=== PATIENT | male | born 1950 | race Caucasian/White ===

== ENCOUNTER 2018-09-16 12:30 | Inpatient (IN) | payer MEDICARE, MEDICAID ==
[~2018-09-16] VITALS: Ht 188 cm; Wt 89.8 kg
[~2018-09-16 12:30] MED LIST: ALLO300T PO; ASPI325T17 PO; ASPI81TA45 PO; ATOR40TA PO; ERGO500017 PO; FEBU40TA PO; LEVO50TA5 PO; LISI-167 PO; LISI40TA PO; METF500T17 PO; METO25TA35 PO; ONDA4TAB10 PO; PRAS10TA4 PO; PRED10TA PO
[2018-10-28 12:19] VITALS: BP 127/78
[2018-10-28] MEDS ORDERED: SODIUM CHLORIDE 0.9% 1,000 ML IV SCH (12:39)
[2018-10-28 12:41] LABS: MICROSCOPIC AUTO
[2018-10-28 12:43] LABS: CULTURE INDICATED? NO
[2018-10-28] MEDS ORDERED: MIDAZOLAM 1 MG/ML, 2ML ONE (12:46)
[2018-10-28] MEDS ORDERED: FENTANYL PF 250 MCG/5ML ONE ×2 (12:46→15:10)
[2018-10-28] MEDS ORDERED: BUPIVACAINE/EPI 0.5% 1:200K ONE (13:00)
[2018-10-28] MEDS ORDERED: THROMBIN 5,000 UNIT VIAL TP ONE (13:01)
[2018-10-28 13:16] LABS: BASOPHILS # (AUTO) 0.02 x10^3/uL (0-0.1); BASOPHILS % (AUTO) 0 % (0-1); EOSINOPHILS # (AUTO) 0.15 x10^3/uL (0-0.4); EOSINOPHILS % (AUTO) 1 % (1-7); LYMPHOCYTES # (AUTO) 1.38 x10^3/uL (1-3.4); LYMPHOCYTES % (AUTO) 12 % (22-44); MD NO; MEAN CORPUSCULAR HEMOGLOBIN 29.6 pg (27.5-34.5); MEAN CORPUSCULAR HGB CONC 32.8 g/dL (33.2-36.2); MEAN CORPUSCULAR VOLUME 90.3 fL (81-97); MEAN PLATELET VOLUME 8.1 fL (7.4-10.4); MONOCYTES # (AUTO) 0.63 x10^3/uL (0.2-0.8); MONOCYTES % (AUTO) 6 % (2-9); NEUTROPHILS # (AUTO) 8.97 x10^3/uL (1.8-6.8); NEUTROPHILS % (AUTO) 80 % (42-75); PLATELET COUNT 266 x10^3/uL (130-400); RED BLOOD COUNT 3.92 x10^6/uL (4.38-5.82); RED CELL DISTRIBUTION WIDTH 17.4 % (9.4-14.8)
[2018-10-28] MEDS ORDERED: CLOP75TA52 PO (13:17)
[2018-10-28] MEDS ORDERED: AMLO10TA8 PO (13:17)
[2018-10-28] MEDS ORDERED: ASPI-496 PO (13:17)
[2018-10-28] MEDS ORDERED: LIDOCAINE-MPF 2% ,5ML ONE (13:26)
[2018-10-28] MEDS ORDERED: EPHEDRINE 50 MG/ML, 1ML ONE (13:26)
[2018-10-28] MEDS ORDERED: PHENYLEPHRINE 10 MG/ML ONE (13:26)
[2018-10-28 13:27] LABS: ALANINE AMINOTRANSFERASE 13 U/L (12-78); ALBUMIN 3.6 g/dL (3.4-5.0); ANION GAP 11 mmol/L (5-15); CALCIUM 9.4 mg/dL (8.5-10.1); CHLORIDE 101 mmol/L (98-107); CREATININE 5.88 mg/dL (0.7-1.3)
[2018-10-28 13:30] LABS: ALKALINE PHOSPHATASE 87 U/L (45-117); TOTAL PROTEIN 7.9 g/dL (6.4-8.2)
[2018-10-28] MEDS ORDERED: CEFTRIAXONE 1,000 MG ONE (13:34)
[2018-10-28] MEDS ORDERED: ONDANSETRON ODT 8 MG PO PRN (15:00)
[2018-10-28] MEDS ORDERED: FENTANYL PF 100 MCG/2ML IV PRN (15:00)
[2018-10-28] MEDS ORDERED: PROMETHAZINE 25 MG/ML, 1ML IV PRN (15:00)
[2018-10-28] MEDS ORDERED: LABETALOL 5MG/ML, 20ML IV PRN (15:00)
[2018-10-28] MEDS ORDERED: PROMETHAZINE 25 MG SUPP PR PRN (15:00)
[2018-10-28] MEDS ORDERED: hydrALAzine 20 MG/ML, 1ML IV PRN (15:00)
[2018-10-28] MEDS ORDERED: ONDANSETRON 2MG/ML, 2ML IV PRN ×2 (15:00→18:30)
[2018-10-28] MEDS ORDERED: OXYcodone 5 MG/5 ML ORAL.SOL UDC PO PRN (15:00)
[2018-10-28] MEDS ORDERED: HYDROmorphone 2 MG/ML, 1ML IVPush PRN (15:00)
[2018-10-28] MEDS ORDERED: ACETAMINOPHEN 325 MG TABLET PO PRN (15:00)
[2018-10-28] MEDS ORDERED: DEXAMETHASONE 4 MG/ML, 1ML ONE (15:10)
[2018-10-28] MEDS ORDERED: SUCCINYLCHOLINE 20 MG/ML, 10ML ONE (15:10)
[2018-10-28] MEDS ORDERED: ONDANSETRON 2MG/ML, 2ML ONE (15:10)
[2018-10-28] MEDS ORDERED: PROPOFOL 10 MG/ML, 20ML ONE (15:10)
[2018-10-28] MEDS ORDERED: ROCURONIUM 10MG/ML,5ML ONE (15:10)
[2018-10-28] MEDS ORDERED: NEOSTIGMINE 1 MG/ML, 10ML ONE (15:10)
[2018-10-28] MEDS ORDERED: GLYCOPYRROLATE 0.2MG/1ML, 5ML ONE (15:10)
[2018-10-28] MEDS ORDERED: CEFAZOLIN 1,000 MG ONE (15:10)
[2018-10-28] MEDS ORDERED: FENTANYL PF 100 MCG/2ML ONE ×2 (17:14→18:50)
[2018-10-28] MEDS ORDERED: SUGAMMADEX 200 MG/2 ML IVPush ONE (17:41)
[2018-10-28] MEDS ORDERED: SODIUM CHLORIDE 0.45% 1,000 ML IV SCH (18:17)
[2018-10-28] MEDS ORDERED: HYDROmorphone 1 MG/ML, 1ML INJ IV PRN (18:30)
[2018-10-28] MEDS ORDERED: HYDROmorphone 2 MG/ML, 1ML ONE (18:50)
[2018-10-28] MEDS ORDERED: OXYcodone 5 MG/5 ML ORAL.SOL UDC ONE (18:50)
[2018-10-28] MEDS: HYDROcodone/APAP 5/325 TABLET PO PRN (22:03)
[2018-10-29 00:20] VITALS: BP 116/79
[2018-10-29] MEDS: MORPHINE SULFATE 4 MG/ML, 1ML IVPush PRN ×2 (00:37→05:36)
[2018-10-29 03:57] VITALS: BP 104/68
[2018-10-29] MEDS ORDERED: LEVOTHYROXINE 25 MCG TABLET ONE (05:30)
[2018-10-29] MEDS: LEVOTHYROXINE 50 MCG TABLET PO SCH (05:35)
[2018-10-29 05:51] LABS: ANION GAP 14 mmol/L (5-15); CALCIUM 8.2 mg/dL (8.5-10.1); CHLORIDE 103 mmol/L (98-107); CREATININE 6.24 mg/dL (0.7-1.3)
[2018-10-29 07:47] VITALS: BP 105/68
[2018-10-29] MEDS: AMLODIPINE 10 MG TAB PO SCH (09:00)
[2018-10-29] MEDS: HYDROcodone/APAP 5/325 TABLET PO PRN ×2 (09:16→17:32)
[2018-10-29 16:18] VITALS: BP 114/69
[2018-10-29] MEDS ORDERED: POLYETHYLENE GLYCOL 17 GM PACKET PO PRN ×2 (19:30→20:00)
[2018-10-29 19:54] VITALS: BP 92/56
[2018-10-29] MEDS: DOCUSATE 100 MG CAPSULE PO PRN (20:58)
[2018-10-30] MEDS: HYDROcodone/APAP 5/325 TABLET PO PRN ×4 (01:20→21:53)
[2018-10-30 01:41] VITALS: BP 94/56
[2018-10-30] MEDS: LEVOTHYROXINE 50 MCG TABLET PO SCH (05:43)
[2018-10-30 06:22] LABS: ANION GAP 9 mmol/L (5-15); CALCIUM 8.6 mg/dL (8.5-10.1); CHLORIDE 100 mmol/L (98-107)
[2018-10-30 06:24] LABS: CREATININE 4.68 mg/dL (0.7-1.3)
[2018-10-30 06:28] LABS: BASOPHILS # (AUTO) 0.01 x10^3/uL (0-0.1); BASOPHILS % (AUTO) 0 % (0-1); EOSINOPHILS # (AUTO) 0.07 x10^3/uL (0-0.4); EOSINOPHILS % (AUTO) 1 % (1-7); LYMPHOCYTES # (AUTO) 0.79 x10^3/uL (1-3.4); LYMPHOCYTES % (AUTO) 7 % (22-44); MD NO; MEAN CORPUSCULAR HEMOGLOBIN 30.1 pg (27.5-34.5); MEAN CORPUSCULAR HGB CONC 32.9 g/dL (33.2-36.2); MEAN CORPUSCULAR VOLUME 91.5 fL (81-97); MEAN PLATELET VOLUME 7.7 fL (7.4-10.4); MONOCYTES # (AUTO) 0.44 x10^3/uL (0.2-0.8); MONOCYTES % (AUTO) 4 % (2-9); NEUTROPHILS # (AUTO) 9.48 x10^3/uL (1.8-6.8); NEUTROPHILS % (AUTO) 88 % (42-75); PLATELET COUNT 198 x10^3/uL (130-400); RED BLOOD COUNT 3.23 x10^6/uL (4.38-5.82); RED CELL DISTRIBUTION WIDTH 17.2 % (9.4-14.8)
[2018-10-30] MEDS: AMLODIPINE 10 MG TAB PO SCH (08:26)
[2018-10-30 08:59] VITALS: BP 133/67
[2018-10-30 13:44] VITALS: BP 99/65
[2018-10-30] MEDS: DOCUSATE 100 MG CAPSULE PO PRN (17:11)
[2018-10-30 20:05] VITALS: BP 103/67
[2018-10-31 02:09] VITALS: BP 107/72
[2018-10-31] MEDS: DOCUSATE 100 MG CAPSULE PO PRN ×3 (05:02→21:40)
[2018-10-31] MEDS: LEVOTHYROXINE 50 MCG TABLET PO SCH (05:02)
[2018-10-31 05:13] LABS: BASOPHILS # (AUTO) 0.02 x10^3/uL (0-0.1); BASOPHILS % (AUTO) 0 % (0-1); EOSINOPHILS # (AUTO) 0.11 x10^3/uL (0-0.4); EOSINOPHILS % (AUTO) 1 % (1-7); LYMPHOCYTES # (AUTO) 0.81 x10^3/uL (1-3.4); LYMPHOCYTES % (AUTO) 9 % (22-44); MD NO; MEAN CORPUSCULAR HGB CONC 32.6 g/dL (33.2-36.2); MEAN CORPUSCULAR VOLUME 91.9 fL (81-97); MEAN PLATELET VOLUME 7.3 fL (7.4-10.4); MONOCYTES # (AUTO) 0.62 x10^3/uL (0.2-0.8); MONOCYTES % (AUTO) 7 % (2-9); NEUTROPHILS # (AUTO) 7.51 x10^3/uL (1.8-6.8); NEUTROPHILS % (AUTO) 83 % (42-75); PLATELET COUNT 192 x10^3/uL (130-400); RED CELL DISTRIBUTION WIDTH 17.4 % (9.4-14.8)
[2018-10-31] MEDS: HYDROcodone/APAP 5/325 TABLET PO PRN ×2 (05:14→09:41)
[2018-10-31 05:23] LABS: ANION GAP 9 mmol/L (5-15); CALCIUM 8.9 mg/dL (8.5-10.1); CHLORIDE 101 mmol/L (98-107); CREATININE 5.84 mg/dL (0.7-1.3)
[2018-10-31 07:42] VITALS: BP 114/74
[2018-10-31] MEDS: AMLODIPINE 10 MG TAB PO SCH (08:12)
[2018-10-31 14:45] VITALS: BP 110/68
[2018-10-31 19:57] VITALS: BP 98/63
[2018-11-01] MEDS: HYDROcodone/APAP 5/325 TABLET PO PRN ×2 (01:06→14:50)
[2018-11-01 02:17] VITALS: BP 110/77
[2018-11-01] MEDS ORDERED: LEVOTHYROXINE 25 MCG TABLET ONE (06:11)
[2018-11-01] MEDS: LEVOTHYROXINE 50 MCG TABLET PO SCH (06:16)
[2018-11-01 06:32] LABS: ANION GAP 11 mmol/L (5-15); CALCIUM 9.4 mg/dL (8.5-10.1); CHLORIDE 99 mmol/L (98-107)
[2018-11-01 06:34] LABS: CREATININE 4.67 mg/dL (0.7-1.3)
[2018-11-01 07:45] VITALS: BP 141/78
[2018-11-01] MEDS: AMLODIPINE 10 MG TAB PO SCH (08:11)
[2018-11-01] MEDS: DOCUSATE 100 MG CAPSULE PO PRN (08:11)
[2018-11-01] MEDS ORDERED: HYDR-3240 PO (12:29)
[2018-11-01] MEDS ORDERED: DOCU-131 PO (12:29)
[2018-11-01 12:47] VITALS: BP 118/76
== END 2018-11-01 14:52 | disposition home or self-care (01) | DRG 660 ==
LOC: ORIP 10-28 11:01 → EDSTATUS 10-28 13:00 → 4NOR 10-28 19:50 → DCLOUNGE 11-01 14:40
PROVIDERS: ADMIT Urology; ATTEND Urology
PROC: 03HY32Z Insertion of Monitoring Device into Upper Artery, Percutaneous Approach (ICD-10-PCS; 2018-10-28)
PROC: 0TT14ZZ Resection of Left Kidney, Percutaneous Endoscopic Approach (ICD-10-PCS; principal; 2018-10-28 13:30)
PROC: 5A1D70Z Performance of Urinary Filtration, Intermittent, Less than 6 Hours Per Day (ICD-10-PCS; 2018-10-29)
PROC: 5A1D70Z Performance of Urinary Filtration, Intermittent, Less than 6 Hours Per Day (ICD-10-PCS; 2018-10-31)
DX: N13.6 Pyonephrosis (principal); I12.0 Hypertensive chronic kidney disease with stage 5 chronic kidney disease or end stage renal disease; N28.9 Disorder of kidney and ureter, unspecified; N18.6 End stage renal disease; I25.10 Atherosclerotic heart disease of native coronary artery without angina pectoris; E11.22 Type 2 diabetes mellitus with diabetic chronic kidney disease; D63.8 Anemia in other chronic diseases classified elsewhere; J44.9 Chronic obstructive pulmonary disease, unspecified; Y83.8 Other surgical procedures as the cause of abnormal reaction of the patient, or of later complication, without mention of misadventure at the time of the procedure; Y82.8 Other medical devices associated with adverse incidents; E03.9 Hypothyroidism, unspecified; Z95.5 Presence of coronary angioplasty implant and graft; Z99.2 Dependence on renal dialysis; Z95.1 Presence of aortocoronary bypass graft; Z86.73 Personal history of transient ischemic attack (TIA), and cerebral infarction without residual deficits
CPT/HCPCS: 36415; 80048; 80053; 81001; 85014; 85025; 86704; 86706; 86850; 86900; 87340; 88307; 90935; 93005; G0378; J0690; J0696; J1100; J2250; J2405; J2704; J2710; J3010; J0330; J2270; J2370

== ENCOUNTER → 2019-11-05 | Outpatient (CLI) | payer MEDICARE ==
[~2019-11-05] MED LIST changes: +AMLO10TA8 PO; +ASPI-496 PO; +CARV3.1212 PO; +CLOP75TA52 PO; +DOCU-131 PO; +HYDR-3240 PO; +ROSU10TA2 PO; +TICA90TA PO
== END | disposition home or self-care (01) ==
LOC: CVU 07:54
PROVIDERS: ATTEND Internal Medicine Cardiovascular Disease
DX: I08.3 Combined rheumatic disorders of mitral, aortic and tricuspid valves (principal); I11.9 Hypertensive heart disease without heart failure; I25.5 Ischemic cardiomyopathy
CPT/HCPCS: 93306; 93356

== ENCOUNTER 2020-06-16 16:37 | Emergency (ER) | payer MEDICARE, MEDICAID ==
[~2020-06-16] VITALS: Ht 188 cm; Wt 98.0 kg
[~2020-06-16 16:37] MED LIST changes: +ACET500T64 PO; +AMLO-211 PO; -AMLO10TA8 PO; +CHOL10003 PO; +CLOP75TA PO; +DOXY100T PO; +GABA300C PO; +HEPA50002 SQ; +HYDR-1067 PO; -HYDR-3240 PO; +LACT10SO24 PO; -LISI40TA PO; +LISI40TA9 PO; +SEVE800T8 PO; +TRAM50TA2 PO
[2020-06-16] MEDS ORDERED: LEVO25TA2 PO (16:53)
--- NOTE | 2020-06-16 16:56 | NUR ---
the patient is a 69m bib ems complaining of left hip pain after a fall this afternoon. He just completed dialysis got off balance and fell. EMS states he was orthostatic on scene. 102/68 semifowlers and 82/55 while sitting up. he was able to bare weight and transfer to the [facility]. the same hip was fx in march 2020 and was fixed surgically with screws. cardiac, sp02, and bp monitors in place. call light within reach.
[2020-06-16 17:58] VITALS: BP 124/79
== END 2020-06-16 18:34 | disposition home or self-care (01) ==
LOC: ED 18:30
DX: S70.02XA Contusion of left hip, initial encounter (principal); I10 Essential (primary) hypertension; E11.9 Type 2 diabetes mellitus without complications; Z99.2 Dependence on renal dialysis; W01.0XXA Fall on same level from slipping, tripping and stumbling without subsequent striking against object, initial encounter; Y93.89 Activity, other specified; Y92.89 Other specified places as the place of occurrence of the external cause; Y99.8 Other external cause status
CPT/HCPCS: 99283

== ENCOUNTER → 2020-06-29 | Outpatient (CLI) | payer MEDICARE, MEDICAID ==
[~2020-06-29] MED LIST changes: +LEVO25TA2 PO
== END | disposition home or self-care (01) ==
LOC: CFH 13:52
PROVIDERS: ATTEND Internal Medicine Cardiovascular Disease
DX: I08.0 Rheumatic disorders of both mitral and aortic valves (principal); I25.10 Atherosclerotic heart disease of native coronary artery without angina pectoris; I11.9 Hypertensive heart disease without heart failure
CPT/HCPCS: 93306

== ENCOUNTER 2020-08-18 16:32 | Emergency (ER) | payer MEDICARE, MEDICAID ==
[~2020-08-18] VITALS: Ht 188 cm; Wt 99.0 kg
[~2020-08-18 16:32] MED LIST changes: -HYDR-1067 PO; +HYDR-2214 PO
[2020-08-18 17:49] LABS: BASOPHILS % (AUTO) 1 % (0-1); EOSINOPHILS % (AUTO) 2 % (1-7); LYMPHOCYTES % (AUTO) 11 % (22-44); MEAN CORPUSCULAR HEMOGLOBIN 31.7 pg (27.5-34.5); MEAN CORPUSCULAR HGB CONC 34.2 g/dL (33.2-36.2); MEAN PLATELET VOLUME 8.5 fL (7.4-10.4); MONOCYTES % (AUTO) 9 % (2-9); NEUTROPHILS % (AUTO) 77 % (42-75); PLATELET COUNT 144 x10^3/uL (130-400); RED BLOOD COUNT 3.25 x10^6/uL (4.38-5.82); RED CELL DISTRIBUTION WIDTH 16.5 % (9.4-14.8)
[2020-08-18 17:53] LABS: ALBUMIN 3.6 g/dL (3.4-5.0); ANION GAP 3 mmol/L (5-15); CALCIUM 9.4 mg/dL (8.5-10.1); CHLORIDE 98 mmol/L (98-107); CREATININE 4.93 mg/dL (0.7-1.3); MD NO
[2020-08-18 17:56] LABS: TROPONIN I 0.022 ng/mL (0.000-0.045)
[2020-08-18 18:31] VITALS: BP 128/78
== END 2020-08-18 18:41 | disposition home or self-care (01) ==
LOC: ED 18:14
DX: R55 Syncope and collapse (principal); Z72.9 Problem related to lifestyle, unspecified; R07.9 Chest pain, unspecified; R94.31 Abnormal electrocardiogram [ECG] [EKG]; E11.9 Type 2 diabetes mellitus without complications; I10 Essential (primary) hypertension
CPT/HCPCS: 36415; 71045; 80048; 82040; 84484; 85025; 93005; 99285

== ENCOUNTER 2020-10-13 01:53 | Inpatient (IN) | payer MEDICARE, MEDICAID ==
[~2020-10-13] VITALS: Ht 188 cm; Wt 93.4 kg
[~2020-10-13 01:53] MED LIST changes: +FERR-36 PO
[2020-10-13] MEDS ORDERED: SODIUM CHLORIDE FLUSH 10ML SYR IVF ONE (02:30)
[2020-10-13 03:03] LABS: BASOPHILS % (AUTO) 1 % (0-1); EOSINOPHILS % (AUTO) 2 % (1-7); LYMPHOCYTES % (AUTO) 12 % (22-44); MEAN CORPUSCULAR HGB CONC 33.7 g/dL (33.2-36.2); MEAN PLATELET VOLUME 8.4 fL (7.4-10.4); MONOCYTES % (AUTO) 8 % (2-9); NEUTROPHILS % (AUTO) 78 % (42-75); PLATELET COUNT 204 x10^3/uL (130-400); RED BLOOD COUNT 3.04 x10^6/uL (4.38-5.82); RED CELL DISTRIBUTION WIDTH 17.3 % (9.4-14.8)
[2020-10-13 03:14] LABS: ALANINE AMINOTRANSFERASE 24 U/L (12-78); ALBUMIN 3.2 g/dL (3.4-5.0); ANION GAP 10 mmol/L (5-15); CALCIUM 9.3 mg/dL (8.5-10.1); CHLORIDE 101 mmol/L (98-107); CREATININE 7.93 mg/dL (0.7-1.3)
[2020-10-13 03:18] LABS: ALKALINE PHOSPHATASE 65 U/L (45-117); BILIRUBIN,TOTAL 1.7 mg/dL (0.2-1.0); TOTAL PROTEIN 6.7 g/dL (6.4-8.2)
[2020-10-13 03:22] LABS: TROPONIN I 0.162 ng/mL (0.000-0.045)
[2020-10-13] MEDS ORDERED: MORPHINE SULFATE 4 MG/ML, 1ML IVPush PRN (03:30)
[2020-10-13] MEDS ORDERED: ASPIRIN 81 MG TABLET CHEW PO ONE (03:30)
[2020-10-13] MEDS ORDERED: FUROSEMIDE 40 MG/4 ML IVPush ONE (03:30)
[2020-10-13] MEDS ORDERED: FUROSEMIDE 40 MG/4 ML ONE (03:50)
[2020-10-13] MEDS ORDERED: ASPIRIN 81 MG TABLET CHEW ONE (03:50)
[2020-10-13] MEDS ORDERED: BACLOFEN 10 MG TABLET PO PRN (04:30)
[2020-10-13] MEDS ORDERED: OXYcodone/APAP 5/325MG TABLET PO PRN (04:30)
[2020-10-13] MEDS ORDERED: ONDANSETRON 2MG/ML, 2ML IVPush PRN (04:30)
[2020-10-13] MEDS ORDERED: ENALAPRILAT 1.25 MG/ML, 2ML IVPush PRN (04:30)
[2020-10-13] MEDS ORDERED: DOCUSATE 100 MG CAPSULE PO PRN (04:30)
[2020-10-13] MEDS ORDERED: GUAIFENESIN/DM 200-20MG, 10ML UDC PO PRN (04:30)
[2020-10-13] MEDS ORDERED: ACETAMINOPHEN 325 MG TABLET PO PRN (04:30)
[2020-10-13] MEDS ORDERED: TEMAZEPAM 15 MG CAPSULE PO PRN (04:30)
[2020-10-13 04:49] VITALS: BP 145/108
[2020-10-13] MEDS: HEPARIN 5,000 UNITS/ML, 1ML SQ SCH ×3 (05:15→21:58)
[2020-10-13 07:05] VITALS: BP 143/98
[2020-10-13 08:07] LABS: TROPONIN I 0.193 ng/mL (0.000-0.045)
[2020-10-13] MEDS: FUROSEMIDE 40 MG/4 ML IV SCH ×2 (09:34→21:10)
[2020-10-13] MEDS ORDERED: DARBEPOETIN 60 MCG/ML SQ SCH (12:00)
[2020-10-13 13:33] LABS: TROPONIN I 0.174 ng/mL (0.000-0.045)
[2020-10-13 14:05] VITALS: BP 126/87
[2020-10-13 21:17] VITALS: BP 116/72
[2020-10-14 01:05] VITALS: BP 124/81
[2020-10-14 06:07] LABS: ALBUMIN 3.4 g/dL (3.4-5.0); ANION GAP 10 mmol/L (5-15); CALCIUM 8.9 mg/dL (8.5-10.1); CHLORIDE 97 mmol/L (98-107)
[2020-10-14 06:14] LABS: BASOPHILS % (AUTO) 0 % (0-1); CREATININE 6.79 mg/dL (0.7-1.3); EOSINOPHILS % (AUTO) 2 % (1-7); LYMPHOCYTES % (AUTO) 11 % (22-44); MEAN CORPUSCULAR HEMOGLOBIN 32.3 pg (27.5-34.5); MEAN CORPUSCULAR HGB CONC 34.1 g/dL (33.2-36.2); MEAN PLATELET VOLUME 8.7 fL (7.4-10.4); MONOCYTES % (AUTO) 7 % (2-9); NEUTROPHILS % (AUTO) 80 % (42-75); PLATELET COUNT 208 x10^3/uL (130-400); RED BLOOD COUNT 3.34 x10^6/uL (4.38-5.82); RED CELL DISTRIBUTION WIDTH 17.5 % (9.4-14.8); TROPONIN I 0.114 ng/mL (0.000-0.045)
[2020-10-14] MEDS: HEPARIN 5,000 UNITS/ML, 1ML SQ SCH ×2 (07:12→17:11)
[2020-10-14] MEDS: FUROSEMIDE 40 MG/4 ML IV SCH ×2 (07:12→17:11)
[2020-10-14 09:30] VITALS: BP 135/81
[2020-10-14] MEDS: SEVELAMER CARBONATE 800MG TAB PO SCH ×3 (11:02→17:11)
[2020-10-14] MEDS: ASPIRIN 81 MG TABLET EC PO SCH (11:02)
[2020-10-14] MEDS: CLOPIDOGREL 75 MG TABLET PO SCH (11:02)
[2020-10-14 13:35] VITALS: BP 138/87
[2020-10-14] MEDS: FERROUS SULFATE 325 MG TABLET PO SCH (17:11)
[2020-10-14 18:58] VITALS: BP 150/83
[2020-10-15] MEDS: HEPARIN 5,000 UNITS/ML, 1ML SQ SCH ×3 (00:19→17:29)
[2020-10-15 01:47] VITALS: BP 147/90
[2020-10-15] MEDS: ASPIRIN 81 MG TABLET EC PO SCH (05:43)
[2020-10-15] MEDS: LEVOTHYROXINE 100 MCG TABLET PO SCH (05:43)
[2020-10-15 05:45] LABS: TROPONIN I 0.107 ng/mL (0.000-0.045)
[2020-10-15 07:58] VITALS: BP 142/91
[2020-10-15] MEDS: SEVELAMER CARBONATE 800MG TAB PO SCH ×3 (08:00→17:28)
[2020-10-15] MEDS: CLOPIDOGREL 75 MG TABLET PO SCH (13:47)
[2020-10-15] MEDS: FERROUS SULFATE 325 MG TABLET PO SCH ×2 (13:47→17:28)
[2020-10-15] MEDS: FUROSEMIDE 40 MG/4 ML IV SCH ×2 (13:48→17:28)
[2020-10-15 15:20] VITALS: BP 122/72
[2020-10-15 18:50] VITALS: BP 105/63
[2020-10-16 00:58] VITALS: BP 106/65
[2020-10-16] MEDS: HEPARIN 5,000 UNITS/ML, 1ML SQ SCH ×3 (01:05→17:29)
[2020-10-16 05:02] LABS: BASOPHILS % (AUTO) 1 % (0-1); EOSINOPHILS % (AUTO) 2 % (1-7); LYMPHOCYTES % (AUTO) 12 % (22-44); MEAN CORPUSCULAR HEMOGLOBIN 32.3 pg (27.5-34.5); MEAN CORPUSCULAR HGB CONC 34.3 g/dL (33.2-36.2); MEAN PLATELET VOLUME 8.5 fL (7.4-10.4); MONOCYTES % (AUTO) 10 % (2-9); NEUTROPHILS % (AUTO) 76 % (42-75); PLATELET COUNT 225 x10^3/uL (130-400); RED BLOOD COUNT 3.91 x10^6/uL (4.38-5.82); RED CELL DISTRIBUTION WIDTH 18.5 % (9.4-14.8)
[2020-10-16 05:13] LABS: ALBUMIN 3.6 g/dL (3.4-5.0); ANION GAP 10 mmol/L (5-15); CALCIUM 9.7 mg/dL (8.5-10.1); CHLORIDE 99 mmol/L (98-107)
[2020-10-16] MEDS: ASPIRIN 81 MG TABLET EC PO SCH (05:32)
[2020-10-16] MEDS: LEVOTHYROXINE 100 MCG TABLET PO SCH (05:32)
[2020-10-16 07:01] VITALS: BP 145/74
[2020-10-16] MEDS ORDERED: REGADENOSON 0.4 MG/5 ML SYRINGE ONE (07:01)
[2020-10-16] MEDS: SEVELAMER CARBONATE 800MG TAB PO SCH ×3 (10:01→17:29)
[2020-10-16] MEDS: FERROUS SULFATE 325 MG TABLET PO SCH ×2 (10:02→17:29)
[2020-10-16] MEDS: CLOPIDOGREL 75 MG TABLET PO SCH (10:02)
[2020-10-16] MEDS: FUROSEMIDE 40 MG/4 ML IV SCH ×2 (10:02→17:29)
[2020-10-16 13:21] VITALS: BP 102/78
[2020-10-16] MEDS: SODIUM ZIRCONIUM CYCLOSILICATE 10 GM PO SCH (13:35)
[2020-10-16 19:18] VITALS: BP 135/78
[2020-10-17 01:21] VITALS: BP 121/72
[2020-10-17] MEDS: HEPARIN 5,000 UNITS/ML, 1ML SQ SCH ×3 (01:33→17:36)
[2020-10-17 05:49] LABS: BASOPHILS % (AUTO) 1 % (0-1); EOSINOPHILS % (AUTO) 2 % (1-7); LYMPHOCYTES % (AUTO) 11 % (22-44); MEAN CORPUSCULAR HEMOGLOBIN 31.5 pg (27.5-34.5); MEAN PLATELET VOLUME 8.6 fL (7.4-10.4); MONOCYTES % (AUTO) 10 % (2-9); NEUTROPHILS % (AUTO) 76 % (42-75); PLATELET COUNT 202 x10^3/uL (130-400); RED BLOOD COUNT 3.99 x10^6/uL (4.38-5.82); RED CELL DISTRIBUTION WIDTH 18.1 % (9.4-14.8)
[2020-10-17 06:01] LABS: ALBUMIN 3.7 g/dL (3.4-5.0); ANION GAP 15 mmol/L (5-15); CHLORIDE 97 mmol/L (98-107)
[2020-10-17 06:06] LABS: CREATININE 9.97 mg/dL (0.7-1.3); TROPONIN I 0.052 ng/mL (0.000-0.045)
[2020-10-17] MEDS: LEVOTHYROXINE 100 MCG TABLET PO SCH (06:10)
[2020-10-17] MEDS: ASPIRIN 81 MG TABLET EC PO SCH (06:10)
[2020-10-17 06:51] VITALS: BP 145/85
[2020-10-17] MEDS: FUROSEMIDE 40 MG/4 ML IV SCH ×2 (07:40→17:36)
[2020-10-17] MEDS: FERROUS SULFATE 325 MG TABLET PO SCH ×2 (07:41→17:36)
[2020-10-17] MEDS: SODIUM ZIRCONIUM CYCLOSILICATE 10 GM PO SCH (07:41)
[2020-10-17] MEDS: CLOPIDOGREL 75 MG TABLET PO SCH (07:41)
[2020-10-17] MEDS: SEVELAMER CARBONATE 800MG TAB PO SCH ×3 (07:41→17:36)
[2020-10-17] MEDS ORDERED: ERGOCALCIFEROL 50,000 UNIT CAPSULE PO SCH (09:00)
[2020-10-17 13:31] VITALS: BP 100/59
[2020-10-17 19:06] VITALS: BP 118/79
[2020-10-18 03:17] VITALS: BP 103/72
[2020-10-18] MEDS: HEPARIN 5,000 UNITS/ML, 1ML SQ SCH ×3 (03:24→16:54)
[2020-10-18 05:21] LABS: BASOPHILS % (AUTO) 1 % (0-1); EOSINOPHILS % (AUTO) 2 % (1-7); LYMPHOCYTES % (AUTO) 11 % (22-44); MEAN CORPUSCULAR HEMOGLOBIN 31.9 pg (27.5-34.5); MEAN CORPUSCULAR HGB CONC 33.7 g/dL (33.2-36.2); MEAN PLATELET VOLUME 8.7 fL (7.4-10.4); MONOCYTES % (AUTO) 9 % (2-9); NEUTROPHILS % (AUTO) 77 % (42-75); PLATELET COUNT 202 x10^3/uL (130-400); RED BLOOD COUNT 3.81 x10^6/uL (4.38-5.82)
[2020-10-18] MEDS: LEVOTHYROXINE 100 MCG TABLET PO SCH (05:28)
[2020-10-18] MEDS: ASPIRIN 81 MG TABLET EC PO SCH (05:28)
[2020-10-18 05:29] LABS: ALBUMIN 3.6 g/dL (3.4-5.0); ANION GAP 8 mmol/L (5-15); CALCIUM 9.3 mg/dL (8.5-10.1); CHLORIDE 102 mmol/L (98-107); CREATININE 6.41 mg/dL (0.7-1.3)
[2020-10-18 06:38] VITALS: BP 99/64
[2020-10-18] MEDS: FUROSEMIDE 40 MG/4 ML IV SCH ×2 (08:13→16:53)
[2020-10-18] MEDS: FERROUS SULFATE 325 MG TABLET PO SCH ×2 (08:14→16:53)
[2020-10-18] MEDS: SEVELAMER CARBONATE 800MG TAB PO SCH ×3 (08:14→16:54)
[2020-10-18] MEDS: CLOPIDOGREL 75 MG TABLET PO SCH (08:14)
[2020-10-18 13:30] VITALS: BP 145/75
[2020-10-18] MEDS: SODIUM ZIRCONIUM CYCLOSILICATE 10 GM PO SCH (14:30)
[2020-10-18] MEDS ORDERED: ERGO500017 PO (16:01)
[2020-10-18] MEDS ORDERED: LISI2.5T PO (16:01)
[2020-10-18] MEDS ORDERED: FERR-36 PO (16:01)
[2020-10-18] MEDS ORDERED: CLOP75TA PO (16:01)
[2020-10-18] MEDS ORDERED: SODI10PO PO (16:01)
[2020-10-18] MEDS ORDERED: CARV3.122 PO (16:01)
[2020-10-18] MEDS ORDERED: FURO40TA6 PO (16:01)
[2020-10-18] MEDS ORDERED: SEVE800T8 PO (16:01)
[2020-10-18] MEDS ORDERED: ASPI81TA45 PO (16:01)
[2020-10-18] MEDS ORDERED: LEVO100T PO (16:06)
== END 2020-10-18 17:52 | disposition home or self-care (01) | DRG 280 ==
LOC: ED 02:29 → EDIP 04:26 → 5SO 04:38
PROVIDERS: ADMIT Internal Medicine; ATTEND Internal Medicine
DX: I21.4 Non-ST elevation (NSTEMI) myocardial infarction (principal); I50.43 Acute on chronic combined systolic (congestive) and diastolic (congestive) heart failure; N18.6 End stage renal disease; J18.9 Pneumonia, unspecified organism; I13.2 Hypertensive heart and chronic kidney disease with heart failure and with stage 5 chronic kidney disease, or end stage renal disease; D50.9 Iron deficiency anemia, unspecified; E11.22 Type 2 diabetes mellitus with diabetic chronic kidney disease; E03.9 Hypothyroidism, unspecified; E87.5 Hyperkalemia; Z66 Do not resuscitate; Z79.02 Long term (current) use of antithrombotics/antiplatelets; Z79.899 Other long term (current) drug therapy; Z95.1 Presence of aortocoronary bypass graft; Z82.49 Family history of ischemic heart disease and other diseases of the circulatory system; Z87.891 Personal history of nicotine dependence; Z91.14 Patient's other noncompliance with medication regimen; Z91.15 Patient's noncompliance with renal dialysis; Z95.5 Presence of coronary angioplasty implant and graft; Z99.2 Dependence on renal dialysis; Z79.82 Long term (current) use of aspirin
CPT/HCPCS: 36415; 71045; 78452; 80053; 80069; 82962; 83735; 83880; 84484; 85025; 86705; 86706; 87340; 90935; 93005; 93017; 93970; 96374; G0378; J0881; J1644; J1940; J2785; A9502

== ENCOUNTER 2020-12-06 01:36 | Emergency (ER) | payer MEDICARE, MEDICAID ==
[~2020-12-06] VITALS: Ht 188 cm; Wt 100.0 kg
[~2020-12-06 01:36] MED LIST changes: +CARV3.122 PO; +FURO40TA6 PO; +LEVO100T PO; +LISI2.5T PO; +SODI10PO PO
[2020-12-06 01:37] VITALS: BP 141/98
--- NOTE | 2020-12-06 01:40 | NUR ---
EKG DONE IN TRIAGE.
[2020-12-06 03:27] LABS: BASOPHILS % (AUTO) 0 % (0-1); EOSINOPHILS % (AUTO) 2 % (1-7); LYMPHOCYTES % (AUTO) 11 % (22-44); MEAN CORPUSCULAR HEMOGLOBIN 31.1 pg (27.5-34.5); MEAN CORPUSCULAR HGB CONC 33.6 g/dL (33.2-36.2); MEAN PLATELET VOLUME 9.1 fL (7.4-10.4); MONOCYTES % (AUTO) 6 % (2-9); NEUTROPHILS % (AUTO) 81 % (42-75); PLATELET COUNT 170 x10^3/uL (130-400); RED BLOOD COUNT 3.37 x10^6/uL (4.38-5.82); RED CELL DISTRIBUTION WIDTH 18.3 % (9.4-14.8)
[2020-12-06 03:38] LABS: ALBUMIN 3.6 g/dL (3.4-5.0); ANION GAP 10 mmol/L (5-15); CALCIUM 9.9 mg/dL (8.5-10.1); CHLORIDE 103 mmol/L (98-107)
--- NOTE | 2020-12-06 04:29 | NUR ---
Patient/Caregiver given discharge instructions and they have confirmed that they understand the instructions. Patient ambulatory with steady gait. NAD, all questions answered appropriately, denies additional needs at this time. No personal belongings left in room after discharge. Pt ambulated out of ED w/ walker, all personal belongings, discharge paperwork. Cab arranged by registration personnell. Voucher provided and signed by SHON
[2020-12-06] MEDS ORDERED: SODIUM ZIRCONIUM CYCLOSILICATE 10 GM PO ONE (04:30)
== END 2020-12-06 04:47 | disposition home or self-care (01) ==
LOC: ED 04:31
DX: E11.22 Type 2 diabetes mellitus with diabetic chronic kidney disease (principal); I13.2 Hypertensive heart and chronic kidney disease with heart failure and with stage 5 chronic kidney disease, or end stage renal disease; I50.9 Heart failure, unspecified; N18.6 End stage renal disease; Z99.2 Dependence on renal dialysis; I25.2 Old myocardial infarction; E87.5 Hyperkalemia; R53.81 Other malaise; E87.70 Fluid overload, unspecified
CPT/HCPCS: 36415; 71045; 80048; 82040; 83880; 84484; 85025; 93005; 99285

== ENCOUNTER 2021-01-08 01:08 | Emergency (ER) | payer MEDICARE, MEDICAID ==
[~2021-01-08] VITALS: Ht 182.9 cm; Wt 81.2 kg
[~2021-01-08 01:08] MED LIST changes: -LISI2.5T PO; +LISI2.5T12 PO
--- NOTE | 2021-01-08 06:40 | NUR ---
PT AMBULATED TO ROOM. HAS LARGE RED ABCESS TO RIGHT FOREARM, NO DRAINAGE NOTED. PT [id number].
--- NOTE | 2021-01-08 06:54 | NUR ---
REPORT AND CARE TO EARL MENENDEZ.
[2021-01-08 06:55] LABS: BASOPHILS % (AUTO) 1 % (0-1); EOSINOPHILS % (AUTO) 2 % (1-7); LYMPHOCYTES % (AUTO) 9 % (22-44); MEAN CORPUSCULAR HEMOGLOBIN 31.7 pg (27.5-34.5); MEAN CORPUSCULAR HGB CONC 32.8 g/dL (33.2-36.2); MEAN PLATELET VOLUME 8.3 fL (7.4-10.4); MONOCYTES % (AUTO) 9 % (2-9); NEUTROPHILS % (AUTO) 80 % (42-75); PLATELET COUNT 184 x10^3/uL (130-400); RED BLOOD COUNT 3.34 x10^6/uL (4.38-5.82); RED CELL DISTRIBUTION WIDTH 19.6 % (9.4-14.8)
--- NOTE | 2021-01-08 06:55 | NUR ---
ASSUMING CARE AFTER BEDSIDE REPORT FROM SHERRY RN. PT RESTING IN BED. VSS. DAVIS.
[2021-01-08 07:03] LABS: ALBUMIN 3.2 g/dL (3.4-5.0); ANION GAP 6 mmol/L (5-15); CALCIUM 9.5 mg/dL (8.5-10.1); CHLORIDE 100 mmol/L (98-107); CREATININE 4.93 mg/dL (0.7-1.3)
[2021-01-08 07:20] VITALS: BP 129/96
--- NOTE | 2021-01-08 09:24 | NUR ---
PT ANGRY THAT HE IS BEING DISCHARGED AND WOUND ISN'T BEING "CUT OPEN AND DRAINED" PT STATES HES BEEN HERE FOR "24 HOURS AND YOU PEOPLE AREN'T DOING ANYTHING" THIS RN APPOLOGIZED FOR HIS FEELING AND EDUCATED PT ON PLAN OF CARE. RN EDUCATED PT ON PRESCRIPTION ANTIBIOTICS AND TOLD PT TO FOLLOW UP WITH SURGICAL REFERAL.
--- NOTE | 2021-01-08 09:32 | NUR ---
Patient given discharge instructions and they have confirmed that they understand the instructions. Patient ambulatory with steady gait. NAD, all questions answered appropriately, denies additional needs at this time. No personal belongings left in room after discharge.
== END 2021-01-08 09:33 | disposition home or self-care (01) ==
LOC: ED 08:55
DX: L03.114 Cellulitis of left upper limb (principal); I11.0 Hypertensive heart disease with heart failure; I50.9 Heart failure, unspecified; I25.2 Old myocardial infarction; E11.9 Type 2 diabetes mellitus without complications
CPT/HCPCS: 36415; 80048; 82040; 85025; 99284